=== PATIENT | male | born 1955 | race Caucasian/White ===

== ENCOUNTER 2016-09-25 10:20 | Day surgery (SDC) | payer OTHER ==
[~2016-09-25] VITALS: Ht 172.7 cm; Wt 96.3 kg
[2016-09-25 11:01] VITALS: Ht 172.7 cm; Wt 96.3 kg
[2016-09-25] MEDS ORDERED: METF500T4 PO (11:06)
[2016-09-25] MEDS ORDERED: LISI10TA2 PO (11:06)
[2016-09-25] MEDS ORDERED: ASPI-664 PO (11:06)
[2016-09-25] MEDS ORDERED: CARV3.1260 PO (11:06)
[2016-09-25] MEDS ORDERED: GLIP5TAB13 PO (11:06)
[2016-09-25] MEDS ORDERED: FENO200 PO (11:06)
[2016-09-25 11:19] VITALS: BP 128/74; PULSE 60; RESP 15
[2016-09-25] MEDS ORDERED: LIDOCAINE 2% (SDV) 5 ML INJ ONE (11:28)
[2016-09-25] MEDS ORDERED: PROPOFOL 40 ML ONE (11:28)
[2016-09-25 12:24] VITALS: BP 129/76; PULSE 70; RESP 21
--- NOTE | 2016-09-25 13:42 | GILP ---
DATE OF PROCEDURE: NAME OF PROCEDURES: Colonoscopy and biopsy. SURGEON: Randy Ovalle MD PREOPERATIVE DIAGNOSIS: Screening colonoscopy. POSTOPERATIVE DIAGNOSES 1. Colonoscopy all the way to the cecum. 2. Small polyp on the ileocecal valve was removed using the biopsy forceps. 3. Diverticulosis of the colon. 4. Internal hemorrhoids. INDICATION FOR THE PROCEDURE: Mr. Raman Quintana is a 60-year-old male patient who was scheduled for sd reening colonoscopy. The procedure and possible complications were well explained to the patient, he understood and conse nted to the procedure. DESCRIPTION OF PROCEDURE: Under the influence of anesthesia, the colonoscope was carefully introduc ed in the rectum and under direct vision, it was advanced all the way to the cecum. FINDINGS: The patient had a small polyp on the ileocecal valve which was removed using the biopsy f orceps. He was noted to have diverticulosis of the colon and internal hemorrhoids. He tolerated the procedure very well and there was no complication from the procedure. At the end o f the procedure, he was awake with stable vital signs and he was discharged home to the care of his family. IMPRESSION: Please see postoperative diagnosis. PLAN: 1. Next screening colonoscopy in 10 years. 2. The patient was advised to take high fiber diet. Dictated By: RANDY CHENEY/BEVERLY Conf#: [id number] DID#: [id number]
== END 2016-09-25 16:56 | disposition home or self-care (01) ==
LOC: GIL 10:20
PROVIDERS: ATTEND Internal Medicine Gastroenterology
DX: Z12.11 Encounter for screening for malignant neoplasm of colon (principal); D12.0 Benign neoplasm of cecum; K57.90 Diverticulosis of intestine, part unspecified, without perforation or abscess without bleeding; K64.8 Other hemorrhoids; E11.9 Type 2 diabetes mellitus without complications; I10 Essential (primary) hypertension; E66.01 Morbid (severe) obesity due to excess calories; Z68.32 Body mass index [BMI] 32.0-32.9, adult; E78.5 Hyperlipidemia, unspecified; I25.10 Atherosclerotic heart disease of native coronary artery without angina pectoris; Z95.0 Presence of cardiac pacemaker
CPT/HCPCS: 45380; 82962; 88305; Z7610